=== PATIENT | male | born 1990 | race Two or more races ===

== ENCOUNTER 2022-12-17 08:27 | Emergency (ER) | payer SELFPAY ==
[2022-12-17 08:33] VITALS: BP 147/91; PULSE 65; RESP 16; TEMP 36.7; O2SAT 99; BMI 31.1
--- NOTE | 2022-12-17 09:48 | ED.SKABFB1 ---
HPI - Skin/Abscess/Foreign Bdy General Chief complaint: Skin/Abscess/Foreign Body Stated complaint: LUMPS AND BUMPS LOWER ABDOMEN Time Seen by Provider: 12/17/22 08:54 Source: patient Mode of arrival: walk-in History of Present Illness HPI narrative: The patient presenting to the Emergency Room with twenty year history of bilateral inguinal discomfort, that has been going on at least for a year, mentioned that the discomfort is associated with straining or carrying something heavy He mentioned that he feel the bulge whenever he stand up No abdominal pain at the moment no nausea no vomiting no fever no chillls, no urinary symptoms no dischargge. He did mention that over the last few weeks he mentioned some pulling in the right testicle sometimes , no swelling Related Data Allergies Allergy/AdvReac Type Severity Reaction Status Date / Time No Known Drug Allergies Allergy Verified 12/17/22 08:38 Review of Systems ROS Status of ROS 10 or more systems reviewed and unremarkable except as noted in history and below Exam Narrative Exam Narrative: Nurses notes and vital signs reviewed and patient is not hypoxic. General: Well-appearing and in no apparent distress. Skin: Warm, dry, no pallor noted. No rash. Head: Normocephalic, atraumatic. Neck: Supple, non-tender. Eye: Pupils are equal, round and EOMI. No scleral icterus. Ears, Nose, Mouth, and Throat: TM are clear, no nasal mucosal hypertrophy. Oral mucosa is moist, no posterior oropharynx erythema, uvula is mid-line Cardiovascular: Regular Rate and Rhythm without murmur, gallop or rub. Respiratory: No accessory muscle use or respiratory distress. Lungs are clear to auscultation, no wheezing, rales or rhonchi Chest Wall: no tenderness Back: No midline thoracic or lumbar vertebral tenderness. No CVA tenderness Musculoskeletal: normal ROM, no calf or popliteal tenderness, no lower extremity edema/swelling GI: Abdomen is soft, non-distended. Normal bowel sounds. No masses appreciated. no inguinal area swelling or tenderness ,no scrotal swelling ,no skin changes,no tumor ,no lymphadenopathy No tenderness to palpation. No rebound, guarding, or rigidity noted. Neurological: A&O x4. No cranial nerve dysfunction observed. No truncal ataxia. Moves all extremities. Sensation intact. Psychiatric: Cooperative and interactive. Normal mood and affect. Constitutional Vital Signs, click to edit/add: Last Vital Signs Temp 98.1 F 12/17/22 08:33 Pulse 65 12/17/22 08:33 Resp 16 12/17/22 08:33 BP 147/91 H 12/17/22 08:33 Pulse Ox 99 12/17/22 08:33 O2 Del Method Room Air 12/17/22 09:11 Course Vital Signs Vital signs: Vital Signs Temperature 98.1 F 12/17/22 08:33 Pulse Rate 65 12/17/22 08:33 Respiratory Rate 16 12/17/22 08:33 Blood Pressure 147/91 H 12/17/22 08:33 Pulse Oximetry 99 12/17/22 08:33 Oxygen Delivery Method Room Air 12/17/22 08:33 Temperature 98.1 F 12/17/22 08:33 Pulse Rate 65 12/17/22 08:33 Respiratory Rate 16 12/17/22 08:33 Blood Pressure 147/91 H 12/17/22 08:33 Pulse Oximetry 99 12/17/22 08:33 Oxygen Delivery Method Room Air 12/17/22 09:11 MDM - Skin/Abscess/Foreign Bdy MDM Narrative Medical decision making narrative: pt presentation mostly 2/2 possible inguinal hernia or at least abd wall weakness no bulging in the abdomen or scrotum when standing up pt instructed about decrease risk factor for hernia , straining and heavy lifting pt referred to general surgery The patient is to followup with primary care physician in next 2-3 days or to return to the emergency department should any of the signs or symptoms worsen or new symptoms develop. The patient agrees with the following Diagnosis and Treatment plan and the patient will be discharged home. Discharge Plan Discharge Chief Complaint: Skin/Abscess/Foreign Body Clinical Impression: Inguinal hernia Patient Disposition: Home, Self-Care Time of Disposition Decision: 09:20 Condition: Good Mode of Transportation: Private Vehicle Instructions: Inguinal Hernia (ED) Stand Alone Forms: Portal Instructions Referrals: Nathaniel Menendez MD [Physician] - 1 week Physician,Non-StaffMD [Primary Care Provider] - 1 week Discharge Date/Time: 12/17/22 09:27
== END 2022-12-17 09:27 | disposition home or self-care (01) ==
PROVIDERS: Emergency Provider Emergency Medicine
DX: K40.90 Unilateral inguinal hernia, without obstruction or gangrene, not specified as recurrent (principal)
CPT/HCPCS: 99281